=== PATIENT | female | born 1960 | race Caucasian/White ===

== ENCOUNTER → 2018-12-19 12:17 | Outpatient (CLI) | payer OTHER, SELFPAY ==
[2018-12-19 13:33] LABS: Free T3, Triiodothyronine Free 3.11 pg/mL (2.77-5.27); Free T4, Direct Thyroxine 1.19 ng/dL (0.78-2.19)
[2018-12-19 13:46] LABS: Thyroid Stimulating Hormone 1.13 uIU/mL (0.47-4.68)
== END ==
PROVIDERS: PCP Family Medicine; Visit Provider Obstetrics & Gynecology
DX: E03.9 Hypothyroidism, unspecified (principal)
CPT/HCPCS: 36415; 84439; 84443; 84481

== ENCOUNTER → 2019-08-13 11:46 | Outpatient (ROUT) | payer OTHER, SELFPAY ==
[2019-08-13 12:10] LABS: C-Reactive Protein Quant < 0.5 mg/dL (<1.0); Rheumatoid Factor < 8.6 IU/mL (<12.0)
[2019-08-13 12:21] LABS: Erythrocyte Sedimentation Rate 8 MM/HR (0-20)
[2019-08-14 21:41] LABS: ANA Screen, IFA Negative (.)
== END ==
PROVIDERS: PCP Family Medicine; Visit Provider Anesthesiology
DX: M19.90 Unspecified osteoarthritis, unspecified site (principal); D89.89 Other specified disorders involving the immune mechanism, not elsewhere classified
CPT/HCPCS: 85651; 86038; 86140; 86430